=== PATIENT | female | born 1985 | race Two or more races ===

== ENCOUNTER 2020-08-14 16:26 | Emergency (ER) | payer SELFPAY ==
[~2020-08-14] VITALS: Ht 165.1 cm; Wt 77.1 kg
[2020-08-14 19:45] VITALS: BP 142/86
== END 2020-08-14 20:40 | disposition home or self-care (01) ==
LOC: ER 16:26 → EDBD 16:26 → ER 20:40
DX: R51.9 Headache, unspecified (principal); Y08.89XA Assault by other specified means, initial encounter; Y93.89 Activity, other specified; Y92.89 Other specified places as the place of occurrence of the external cause; Y99.8 Other external cause status
CPT/HCPCS: 70486